=== PATIENT | female | born 1960 | race Caucasian/White ===

== ENCOUNTER 2016-11-05 10:47 | Emergency (ER) | payer BC, OTHER ==
[~2016-11-05] VITALS: Ht 180.3 cm; Wt 117.9 kg
[~2016-11-05 10:47] MED LIST: ASPIRIN EC81 M1; CALCIUM 500 +1 EAC4; CHOLESTEROL MA1 EACH; EXCEDRIN ASA F1 EAC1; GLUCOPHAGE1000 MG; GNP THERAPEUTI1 EACH; L-LYSINE500 M1; LISINOPRIL30 MG; NORCO 5-325 TA1 EACH PO; PRAVASTATIN SOD10 MG
[2016-11-05] MEDS ORDERED: GEMFIBROZIL 60600 MG PO (11:10)
[2016-11-05] MEDS ORDERED: PRAVASTATIN SOD80 MG PO (11:11)
[2016-11-05] MEDS ORDERED: LISINOPRIL30 MG PO (11:11)
[2016-11-05] MEDS ORDERED: GLUCOPHAGE1000 MG PO (11:11)
[2016-11-05] MEDS ORDERED: VALIUM5 MG PO (12:16)
[2016-11-05] MEDS ORDERED: MOBIC7.5 MG PO (12:16)
[2016-11-05 12:28] VITALS: BP 148/74
== END 2016-11-05 12:17 | disposition home or self-care (01) ==
LOC: ER 10:47
DX: M54.89 Other dorsalgia (principal); E11.9 Type 2 diabetes mellitus without complications; F10.99 Alcohol use, unspecified with unspecified alcohol-induced disorder; Z98.890 Other specified postprocedural states; Z88.2 Allergy status to sulfonamides; Z88.6 Allergy status to analgesic agent; Z77.22 Contact with and (suspected) exposure to environmental tobacco smoke (acute) (chronic)

== ENCOUNTER 2018-01-02 04:36 | Emergency (ER) | payer OTHER ==
[~2018-01-02] VITALS: Ht 180.3 cm; Wt 119.8 kg
[~2018-01-02 04:36] MED LIST changes: +GEMFIBROZIL 60600 MG PO; +GLUCOPHAGE1000 MG PO; +LISINOPRIL30 MG PO; +MOBIC7.5 MG PO; +PRAVASTATIN SOD80 MG PO; +VALIUM5 MG PO
[2018-01-02] MEDS ORDERED: LEXAPRO 10 MG T10 M1 PO (04:52)
[2018-01-02 05:15] LABS: ABSOLUTE NEUTROPHILS 7.7 thou/uL (1.4-8.2); BASOPHILS 0.4 % (0.0-2.0); EOSINOPHILS 3.1 % (0.0-3.0); HEMATOCRIT 40.3 % (37.0-47.0); HEMOGLOBIN 13.9 gm/dL (12.0-15.0); LYMPHOCYTES 24.2 % (24.0-44.0); MCH 30.6 pg (26.0-34.0); MCHC 34.6 g/dL (28.0-37.0); MCV 88.7 fL (80.0-100.0); MONOCYTES 6.6 % (1.0-8.0); PLATELET COUNT 391 thou/uL (150-400); POLYS 65.7 % (36.0-66.0); RBC 4.55 mil/uL (4.20-5.00); RDW 14.7 % (10.5-14.5); WBC 11.7 thou/uL (4.0-11.0)
[2018-01-02 05:19] LABS: URINE BILIRUBIN NEGATIVE (Negative); URINE BLOOD TRACE (Negative); URINE CLARITY CLEAR; URINE COLOR YELLOW; URINE GLUCOSE-RANDOM* NEGATIVE (Negative); URINE KETONES NEGATIVE (Negative); URINE LEUKOCYTES NEGATIVE (Negative); URINE NITRITE NEGATIVE (Negative); URINE PROTEIN (DIPSTICK) 2+ (Negative); URINE SPECIFIC GRAVITY >= 1.030 (1.005-1.035); URINE UROBILINOGEN 0.2 E.U./dl (0.2-1.0)
[2018-01-02 05:24] LABS: ANION GAP 12 mmol/L (7-16); BUN 13 mg/dL (7-18); CALCIUM 9.3 mg/dL (8.5-10.1); CHLORIDE 99 mmol/L (98-107); CO2 23 mmol/L (21-32); CREATININE 0.9 mg/dL (0.6-1.0); GLUCOSE 194 mg/dL (74-106); POTASSIUM 3.8 mmol/L (3.5-5.1); SODIUM 134 mmol/L (136-145)
[2018-01-02 05:30] LABS: ALBUMIN 4.1 g/dL (3.4-5.0); DIRECT BILIRUBIN < 0.1 mg/dL (<0.1-0.3); LIPASE 133 U/L (73-393); SGOT 13 U/L (15-37); SGPT 22 U/L (30-65); TOTAL BILIRUBIN 0.2 mg/dL (<0.1-1.0); TOTAL PROTEIN 7.8 g/dL (6.4-8.2)
[2018-01-02 05:55] LABS: BACTERIA None Seen /HPF (None Seen); CASTS None Seen /LPF (None Seen); CRYSTALS None Seen /LPF (None Seen); MUCUS None Seen strn/LPF (None Seen); SQUAMOUS 4-10 Moderate /LPF (0-3); URINE RBC 0-2 Rare /HPF (0-2); URINE WBC None Seen /HPF (0-5)
[2018-01-02] MEDS ORDERED: FLAGYL500 MG PO (06:02)
[2018-01-02] MEDS ORDERED: PHENERGAN 25 MG25 M1 PO (06:02)
[2018-01-02] MEDS ORDERED: CIPROFLOXACIN500 M1 PO (06:02)
[2018-01-02] MEDS ORDERED: NORCO 5-325 TA1 EACH PO (06:02)
[2018-01-02 06:52] VITALS: BP 143/65
== END 2018-01-02 06:54 | disposition home or self-care (01) ==
LOC: ER 04:36
PROVIDERS: Emergency Medicine
DX: K57.92 Diverticulitis of intestine, part unspecified, without perforation or abscess without bleeding (principal); E11.9 Type 2 diabetes mellitus without complications; Z88.2 Allergy status to sulfonamides; Z88.6 Allergy status to analgesic agent; Z77.22 Contact with and (suspected) exposure to environmental tobacco smoke (acute) (chronic)